=== PATIENT | male | born 1990 | race Caucasian/White ===

== ENCOUNTER 2018-01-29 20:26 | Inpatient (IN) | payer SELFPAY ==
[~2018-01-29 20:26] MED LIST: EPINEPHrine 1 MG/10 ML Abboject SYRINGE ONE; EPINEPHrine 1 MG/ML AMP ONE; Naloxone HCl 0.4 mg/ml Vial ONE; Sodium Bicarb 50 MEQ/50 ML Abboject 8.4% SYRINGE ONE
[2018-01-29 20:57] LABS: #Eosinphils 0.2 thou/uL (0.0-0.7); #Lymphocytes 3.5 thou/uL (1.20-3.40); #Neutrophils 12.5 thou/uL (1.40-6.50); %Basophils 0.2 % (0.0-1.0); %Lymphocytes 20.4 % (21.0-51.0); %Monocytes 5.6 % (0.0-10.0); %Neutrophils 72.8 % (42.0-75.0); Hemoglobin 12.8 g/dL (14.0-18.0); Mean Corpuscular Hemoglobin 30.1 pg (27.0-31.0); Mean Corpuscular Volume 91.1 fl (80.0-94.0); Platelet Count 134 thou/uL (130-400); Red Blood Cell (RBC) Count 4.25 mill/uL (4.70-6.10); White Blood Cell (WBC) Count 17.2 thou/uL (4.8-10.8)
--- NOTE | 2018-01-29 21:03 | RAD ---
PORTABLE SUPINE CHEST: 01/29/2018 PROVIDED CLINICAL HISTORY: Respiratory insufficiency. COMPARISON: 12/29/2016 FINDINGS: The cardiac and mediastinal silhouette is magnified by the portable technique. An endotracheal tube is noted, the tip of which projects in the region of the thoracic inlet. An enteric catheter is note d, the tip of which is below the diaphragm. No focal consolidation evident. The supine nature of th e study limits sensitivity for the detection of pleural fluid and pneumothorax, without evidence for such. IMPRESSION: No evidence for an acute cardiopulmonary process. POS: [facility]
[2018-01-29] MEDS ORDERED: Naloxone HCl 2 mg/2 ml Syringe ONE ×2 (21:09→21:10)
[2018-01-29 21:15] LABS: Base Excess (BEa) -15.6 mEq/L (0 (+/-) 2.5); Hematocrit-ABG 37.4 % (42.0-52.0); Hemoglobin (Hb) 12.4 g/dL (14.0-18.0); O2 Tension (PaO2) 107.3 mmHg (80.0-100.0); pH, Arterial 6.88 (7.35-7.45)
[2018-01-29 21:16] LABS: Analyzer IN Cardio ER; Puncture Site RRA
[2018-01-29 21:23] LABS: Acetaminophen Less than 6.0 mcg/mL (10.0-30.0); Alcohol 11 mg/dL (Less than 10); Salicylate Less than 8.0 mg/dL (15.0-30.0)
[2018-01-29 21:27] LABS: ALT (SGPT) 1288 U/L (8-55); AST (SGOT) 1529 U/L (5-34); Albumin 2.7 g/dL (3.5-5.0); Alkaline Phosphatase 69 U/L (40-150); Anion Gap 27 mmol/L (10-20); BUN (Urea Nitrogen) 18 mg/dL (8.9-20.6); Bilirubin, Total 0.7 mg/dL (0.2-1.2); Calc. Creatinine Clearance 0 mL/min (70-130); Calcium 6.8 mg/dL (7.8-10.44); Carbon Dioxide 17 mmol/L (22-29); Chloride 106 mmol/L (98-107); Estimated GFR-MDRD 19; Globulin 1.8 g/dL (2.4-3.5); Glucose 199 mg/dL (70-105); Protein, Total 4.5 g/dL (6.0-8.3); Sodium 146 mmol/L (136-145)
[2018-01-29 21:29] LABS: Bilirubin Small (Negative); Blood, Urine Negative (Negative); Clarity CLEAR (Clear); Glucose, Urine (Dipstick) Negative (Negative); Leukocyte Negative (Negative); Nitrite Negative (Negative); Protein, Urine (Dipstick) Trace mg/dL (Neg-Trace); Urobilinogen 0.2 mg/dL (0.2-1.0); pH, Urine 5.5 (5.0-9.0)
[2018-01-29 21:31] LABS: Troponin I Less than 0.010 ng/mL (< 0.028)
[2018-01-29 21:37] LABS: Amphetamine Not Detected (NotDetected); Barbiturates Screen Not Detected (NotDetected); Benzodiazepine Screen Detected (NotDetected); Cocaine Metabolite Screen Not Detected (NotDetected); Medtox Control Line Valid? VALID (VALID); Medtox Reader # READER 4; Methadone Not Detected (NotDetected); Methamphetamine Not Detected (NotDetected); Opiate Screen Detected (NotDetected); Oxycodone Screen Detected (NotDetected); Phencyclidine (PCP) Not Detected (NotDetected); THC/Cannabinoid Screen Not Detected (NotDetected); Tricyclic Screen Not Detected (NotDetected)
[2018-01-29 21:42] LABS: CKMB 113.5 ng/mL (0-6.6)
[2018-01-29] MEDS ORDERED: Hydrocortisone Sod Succ/PF 100 mg/2 ml Vial ONE (21:47)
[2018-01-29 21:52] LABS: CK (CPK) 13780 U/L (30-200)
[2018-01-29 22:17] LABS: pH, Arterial 6.85 (7.35-7.45)
[2018-01-29 22:19] LABS: Actual Bicarbonate (HCO3a) 17.6 mEq/L (22-26); Base Excess (BEa) -17.6 mEq/L (0 (+/-) 2.5); CO2 Tension 102.1 mmHg (35.0-45.0); Hematocrit-ABG 38.6 % (42.0-52.0); Hemoglobin (Hb) 12.8 g/dL (14.0-18.0); O2 Tension (PaO2) 95.1 mmHg (80.0-100.0)
[2018-01-29 22:20] LABS: Analyzer IN Cardio ER; Puncture Site RRA
[2018-01-29 22:21] LABS: ALV-art Gradient 490.275 (0-20)
--- NOTE | 2018-01-29 22:21 | CT ---
CT CERVICAL SPINE: 01/29/2018 PROVIDED CLINICAL HISTORY: Neck abrasions. FINDINGS: There is no evidence for fracture or traumatic subluxation. No prevertebral soft tissue swelling shaila arent. The visualized lung apices appear grossly clear. The enteric catheter is coiled on itself mu ltiple times in the region of the hypopharynx. IMPRESSION: No evidence for fracture or traumatic subluxation. POS: [facility]
--- NOTE | 2018-01-29 22:24 | CT ---
CT BRAIN: 01/29/2018 PROVIDED CLINICAL HISTORY: Overdose. Altered mental status. COMPARISON: 01/18/2018 FINDINGS: The ventricular system appears normal in size and morphology. There is no evidence for intracranial hemorrhage or mass effect. The extracranial soft tissues and osseous structures demonstrate an unrem arkable CT appearance, with the exception of fluid and density and mucosal thickening involving the s phenoid sinus and right maxillary sinus. IMPRESSION: 1. No evidence for intracranial hemorrhage or mass effect. 2. Paranasal sinus mucosal disease, as above. POS: [facility]
[2018-01-29 22:46] LABS: Actual Bicarbonate (HCO3a) 12.8 mEq/L (22-26); Base Excess (BEa) -21.7 mEq/L (0 (+/-) 2.5); CO2 Tension 78.3 mmHg (35.0-45.0); O2 Tension (PaO2) 78.8 mmHg (80.0-100.0); pH, Arterial 6.83 (7.35-7.45)
[2018-01-29 22:47] LABS: Hematocrit-ABG 34.3 % (42.0-52.0)
[2018-01-29 22:48] LABS: ALV-art Gradient 536.325 (0-20); Analyzer IN Cardio ER; Calcium, Ionized 0.9 mmol/L (1.12-1.30); Puncture Site RRA
[2018-01-30] MEDS ORDERED: Lacri-Lube Opth Oint 3.5 GM TUBE EA EYE PRN (00:06)
[2018-01-30] MEDS ORDERED: Acetaminophen 650 MG Suppository PR PRN (00:10)
[2018-01-30] MEDS ORDERED: Ondansetron ODT 4 MG TAB PO PRN (00:10)
[2018-01-30] MEDS ORDERED: Ondansetron HCl/PF 4 MG/2 ML Vial IVP PRN (00:10)
[2018-01-30] MEDS ORDERED: DC Sedation Protocol FS ONE (00:12)
[2018-01-30] MEDS ORDERED: Ventilator Sedation Protocol 1 EACH FS SCH (00:15)
[2018-01-30] MEDS ORDERED: cefTRIAXone\\ROCEPHIN 2 GM in Sodium Chloride 0.9% 100 ML IVPB SCH (01:00)
[2018-01-30] MEDS: Dextrose 5 % And 0.9 % NaCl 1,000 ML IV SCH ×2 (01:25→04:22)
[2018-01-30] MEDS: Norepinephrine 8 MG/0.9% NS 250 ML IVPB PRN ×2 (01:26→06:04)
[2018-01-30] MEDS: Hydrocortisone Sod Succ/PF 100 mg/2 ml Vial IVP SCH ×3 (01:29→12:08)
[2018-01-30] MEDS: Naloxone HCl 2 MG, Admixture Fee 1 EACH in Sodium Chloride 0.9% 500 ML IV PRN ×3 (01:33→06:04)
[2018-01-30 01:58] VITALS: BMI 40.2
[2018-01-30] MEDS: EPINEPHrine 4 MG, Admixture Fee 1 EACH in Dextrose 5% in Water 250 ML IVPB SCH ×4 (02:05→08:52)
--- NOTE | 2018-01-30 02:54 | HP ---
DATE OF ADMISSION: 01/29/2018 The patient was seen and examined on 01/29/2018 PRIMARY CARE PHYSICIAN: Yolanda Chatman. CHIEF COMPLAINT AND REASON FOR ADMISSION: Unresponsiveness. HISTORY OF PRESENT ILLNESS: The patient is a 28-year-old male with chronic pain syndrome, anxiety, d epression, posttraumatic stress disorder, who presented to the emergency room by EMS. The patient is currently intubated. No family at the bedside. History obtained from the review of ER chart. Please note that the patient has 2 different medical record numbers. His other medical record number is [id number]. The patient was last seen in the emergency room approximately 2 weeks ago for multiple complaints. Yoandy reynolds was discharged home. He declined [facility] evaluation per ER report. The patient was last seen normal approximately 24 hours ago. He was found by the neighbor slumped ov er the chair from the window. He received Narcan and was subsequently intubated. He required CPR wi th medications per ACLS protocol. He had a return of spontaneous circulation after 2 rounds of epine phrine. He required several medications including CPR while in the emergency room. His initial ABGs showed pH of 6.88 with pCO2 of 103, bicarbonate of 19, pO2 of 107.3. Please refer to the ER note fo r medication administration summary. PAST MEDICAL HISTORY: From review of record: 1. Fibromyalgia. 2. Chronic pain syndrome. 3. Trigeminal neuralgia. 4. Chronic headaches. 5. Anxiety and depression. 6. PTSD. 7. Chronic insomnia. 8. Irritable bowel syndrome. PAST SURGICAL HISTORY: 1. Multiple nasal surgeries. 2. Left ankle surgery. 3. Tonsillectomy. ALLERGIES: The patient is allergic to HYDROCODONE. Other allergies to be confirmed. CURRENT HOME MEDICATIONS: Cannot be obtained from the patient due to current cognitive status. SOCIAL HISTORY: Cannot be obtained due to current cognitive status. FAMILY HISTORY: Cannot be obtained due to current cognitive status. REVIEW OF SYSTEMS: Cannot be obtained due to current cognitive status. PHYSICAL EXAMINATION: VITAL SIGNS: On ER arrival, temperature of 92 with respirations of 26, pulse rate of 113, saturation of 91% on ventilator. His blood pressure was 94/58 on Levophed and epinephrine drip. GENERAL: A 28-year-old male, unresponsive, on mechanical ventilation. Currently on no sedation. HEENT: Head atraumatic, normocephalic. Sclerae anicteric. Dry mucous membranes. Right pupil was a round 8 mm, the left pupil was around 6 mm. The left pupil was slightly reactive to light. NECK: Supple. Neck collar noted. There was a small abrasion over the left side of the neck. There was no neck stiffness per ER record. LUNGS: Showed diminished air entry at bases with scattered rhonchi. No wheezing. HEART: S1, S2 present. Regular rate and rhythm. There was some superficial skin bruising from the CPR. No heaves or pulsation. ABDOMEN: Soft. Bowel sounds present, no rebound, guarding, no costovertebral angle tenderness. EXTREMITIES: No edema or calf tenderness. NEUROLOGIC AND PSYCHIATRIC: Could not be done due to current cognitive status. He is not responding to painful stimuli. SKIN: Warm and dry. LYMPH NODES: No palpable lymph nodes in the neck. PERIPHERAL VASCULAR: Radial pulses palpable bilaterally, low volume. LABORATORY AND X-RAY FINDINGS: 1. EKG by my review showed normal sinus rhythm with nonspecific ST-T wave changes. 2. CK was 13,780, AST was 1529, ALT 1288, creatinine 3.81. His creatinine 2 weeks ago was 0.97. 3. WBC was 17.2 with hemoglobin 12.8. 4. ABGs as discussed above. 5. Urine drug screen showed oxycodone, opiates and benzodiazepines. Plasma alcohol was 11. 6. Urinalysis was negative for WBC, bacteria. 7. Sodium was 146, potassium 4.0, chloride 106, bicarbonate 17, anion gap was 27 with creatinine of 3.81. 8. Chest x-ray by my review was negative for infiltrate. 9. CT scan of the brain was negative for acute findings. 10. Cervical spine CT was negative for acute fractures or subluxation. IMPRESSION: 1. Toxic metabolic encephalopathy/cardiac arrest/suicidal attempt with acute hypoxic and hypercapnic respiratory failure. 2. Chronic pain syndrome. 3. Anxiety, depression, posttraumatic stress disorder/fibromyalgia. 4. Rhabdomyolysis. 5. Acute kidney injury, multifactorial. 6. Anion gap metabolic acidosis. 7. Abnormal liver function tests, probably secondary to hypoperfusion. PLAN: The patient will be monitored in the Intensive Care Unit. We will continue mechanical ventila tion. Please note that the patient is currently not on sedation. We will repeat ABGs in a.m. A.m. labs including CK and CK-MB. Continue IV hydration. Consult Critical Care. Family has been notifie d by the ER physician. We will repeat chest x-ray in a.m. We will discuss the plan of care with the family when they arrive.
[2018-01-30] MEDS ORDERED: Naloxone HCl 2 mg/2 ml Syringe ONE (04:35)
[2018-01-30 04:52] LABS: CKMB 254.2 ng/mL (0-6.6); Troponin I 0.695 ng/mL (< 0.028)
[2018-01-30 05:11] LABS: CK (CPK) Greater than 40000 U/L (30-200)
[2018-01-30 05:13] LABS: Lactic Acid 15.5 mmol/L (0.5-2.2)
[2018-01-30] MEDS ORDERED: Sodium Bicarbonate 150 MEQ in Dextrose 5% in Water 1,000 ML IV SCH (05:30)
[2018-01-30 07:09] VITALS: BP 105/44
[2018-01-30] MEDS ORDERED: ADMIXTURE FEE IV PRN (07:57)
[2018-01-30] MEDS ORDERED: SODIUM CHLORIDE IV PRN (07:57)
[2018-01-30] MEDS ORDERED: NALOXONE HCL IV PRN (07:57)
[2018-01-30] MEDS ORDERED: cefTRIAXone\\ROCEPHIN 1 GM in Sodium Chloride 0.9% 100 ML IVPB SCH ×2 (08:33→09:00)
[2018-01-30 08:53] LABS: CO2 Tension 66.4 mmHg (35.0-45.0); O2 Tension (PaO2) 107.5 mmHg (80.0-100.0); pH, Arterial 6.78 (7.35-7.45)
[2018-01-30 08:54] LABS: Actual Bicarbonate (HCO3a) 9.2 mEq/L (22-26); Base Excess (BEa) -26.8 mEq/L (0 (+/-) 2.5)
[2018-01-30 08:55] LABS: Puncture Site LBA
[2018-01-30 08:56] LABS: Hemoglobin 14.4 g/dL (14.0-18.0); Mean Corpuscular HGB CONC 30.5 g/dL (32.0-36.0); Mean Corpuscular Hemoglobin 29.4 pg (27.0-31.0); Mean Corpuscular Volume 96.3 fl (80.0-94.0); Mean Platelet Volume 7.7 fL (7.4-10.4); Platelet Count 139 thou/uL (130-400); RBC Distribution Width 12.9 % (11.5-14.5); Red Blood Cell (RBC) Count 4.91 mill/uL (4.70-6.10); White Blood Cell (WBC) Count 31.4 thou/uL (4.8-10.8)
[2018-01-30] MEDS ORDERED: Famotidine/PF 20 mg/2ml Vial SLOW IVP SCH (09:00)
[2018-01-30] MEDS ORDERED: Sodium Bicarb 50 MEQ/50 ML Abboject 8.4% SYRINGE IVP SCH (09:15)
[2018-01-30 09:43] LABS: Band 34 % (5-11); Burr Cells SLIGHT = 2-5 cells (100X) (0-1/hpf); Eosinophils 2 % (0-10); Lymphocytes 13 % (21-51); MDiff Complete? YES; Monocytes 10 % (0-10); Neutrophil 41 % (42-75); PLT Morphology Comment Appears Adequate; Vacuoles SLIGHT
[2018-01-30 09:53] LABS: Albumin 1.3 g/dL (3.5-5.0)
[2018-01-30 09:54] LABS: Chloride 104 mmol/L (98-107); Potassium 4.3 mmol/L (3.5-5.1); Sodium 141 mmol/L (136-145)
[2018-01-30 09:56] LABS: Globulin 0.9 g/dL (2.4-3.5)
[2018-01-30 09:57] LABS: Anion Gap 24 mmol/L (10-20); Bilirubin, Total 0.8 mg/dL (0.2-1.2); Carbon Dioxide 17 mmol/L (22-29)
[2018-01-30 09:58] LABS: Alkaline Phosphatase 99 U/L (40-150)
[2018-01-30 09:59] LABS: Calc. Creatinine Clearance 44 mL/min (70-130); Estimated GFR-MDRD 15
[2018-01-30 10:00] LABS: BUN (Urea Nitrogen) 19 mg/dL (8.9-20.6)
[2018-01-30] MEDS ORDERED: Dextrose 50% Abboject 50 ML SYRINGE ONE (10:00)
[2018-01-30] MEDS ORDERED: DOPamine/D5W 400 mg/250 ml PREMIX ONE (10:00)
[2018-01-30] MEDS ORDERED: Atropine Sulfate 1 mg/10 ml Syringe ONE (10:00)
[2018-01-30] MEDS ORDERED: EPINEPHrine 1 MG/10 ML Abboject SYRINGE ONE (10:00)
[2018-01-30] MEDS ORDERED: Sodium Bicarb 50 MEQ/50 ML Abboject 8.4% SYRINGE ONE (10:00)
[2018-01-30 10:01] LABS: ALT (SGPT) 1975 U/L (8-55)
[2018-01-30 10:07] LABS: AST (SGOT) Greater than 3500 U/L (5-34); Glucose 626 mg/dL (70-105); Protein, Total 2.2 g/dL (6.0-8.3)
--- NOTE | 2018-01-30 10:36 | DS ---
DATE OF SERVICE: 01/30/2018 This is a CPR note, prolonged over 35 minutes. Mr. Jeffrey who was already on 3 pressors including Levophed, epinephrine and vasopressin. He had a blood gas this morning showed he remained severely acidotic with a pH of 6.78. PCO2 66, pO2 is 107. This is on a rate of 30 and 100% FiO2. Shortly after that at about 9:18 he went into cardiac arrest . Prolonged CPR was initiated from 9:18 to about 9:50. During the course of over 35 minutes he received ongoing continuous CPR with multiple amps of bicarbo marv, at least 5 multiple amps of epinephrine, at least 5 or greater in spite of him being on epineph rine drip, received 20 mg of vasopressin, an amp of calcium, several amps of D50 and insulin. An amp of glucagon and aggressive CPR. For a brief period of time we were able to get a rhythm, but no clear blood pressure. Even started double strength dopamine at one time. His was contacted. She arrived at the bedside and was told that his prognosis was grave. Brief ly after his CPR was stopped, 5 minutes have been back again, systolic with ongoing CPR. Nephrology was consulted. Consider emergency dialysis for his severe metabolic acidosis. Unfortunately, with h is hypertension and ongoing CPR this was not possible. He eventually went into a pulseless electrical activity with some kind of a rhythm, but no blood pres sure. Once again CPR was initiated. It is felt after 35 minutes that his outlook was grave. His had arrived, we discussed with her the prolonged CPR, at this time, probably was not going to change the course of his eventual demise. She agreed that we would not do any further CPR. After the third CPR, no further chest compressions were made. His ventilator was discontinued. He had no spontaneous respiration. All his pressors, 4 of them were discontinued. Slowly his PEA rhythm proceeded to become asystolic. He was pronounced at 10:05 a.m. on 01/30/2018. His is at the bedside. She does not want any autopsy. The hospital spin tank tender was at the bedside to comfort the patient's . IMPRESSION: 1. Status post overdose on a large quantity of hydrocodone. 2. Severe metabolic acidosis. 3. Renal failure, combination of hypertension and probably rhabdomyolysis. 4. Persistent shock in spite of being on multiple pressors and severe metabolic acidosis. 5. Renal failure. 6. Metabolic encephalopathy. The body will be released to the home as per the . Once again at the time of demise is 10:05 a.m. on 01/30/2018. CAUSE OF DEMISE: Multiorgan failure, severe metabolic acidosis secondary to overdose on hydrocodone.
[2018-01-30 12:02] VITALS: TEMP 91.9
--- NOTE | 2018-01-30 15:04 | CON ---
DATE OF CONSULTATION: 01/30/2018 HISTORY OF PRESENT ILLNESS: Corey Jeffrey is a 28-year-old unfortunate gentleman, history well outlined by the ER physician, history was given to the ER physician by paramedics. A week ago, the patient was seen in the ER with symptoms of post-traumatic stress syndrome, agitation, and confusion. His primary doctor is has apparently prescribed some hydrocodone for chronic pain at the time of his week ago ER visit. His past medical history was notable for fibromyalgia, chronic neck and back pain, asthma, trigeminal neuralgia, chronic headache, vertigo, and insomnia. Now it appears he took unknown quantity of hydrocodone, was last seen talking 24 hours ago by family members. Apparently, someone noticed he was not breathing, slumped on the chair, 911 was called in. He had a suicide note kept on his chest, which stated a DNR. CPR was initiated on arrival by the paramedics. He was given several amps of epinephrine, 3 amps of bicarbonate, IV fluids, Narcan was initiated. I was notified about the patient's arrival in the ER. There was 2 primary care physician's name on his hydrocodone bottle. MEDICATIONS: His medicines from home includes chlorzoxazone 500, laxative, oxycodone 10 mg, Naprosyn, Cardizem 90 twice a day, sumatriptan 100 every 2 hours p.r.n., clonazepam 2 mg twice a day, tizanidine 4 mg a day, Xyzal 5 daily , baclofen as needed, Cymbalta 60 twice a day, sildenafil 20 twice a day, Adcirca 20 twice a day, ranitidine 150, Afrin. PAST SURGICAL HISTORY: Outlined in his previous records included some kind of nasal surgery and tonsillectomy. PAST MEDICAL HISTORY: Pertinent for major anxiety, bipolar disorder, fibromyalgia, and chronic headaches. ALLERGIES: Unable to obtain, but appears PENICILLIN AND DEXAMETHASONE. SOCIAL/FAMILY HISTORY: Otherwise unobtainable. REVIEW OF SYSTEMS: Unobtainable. PHYSICAL EXAMINATION: VITAL SIGNS: Pulse is 70, blood pressure 110/44, sats are 92%, respiratory rate , vent set at 30. HEENT: Pupils are 6 mm dilated. CHEST: Decreased breath sounds, no wheezing. CARDIAC: Normal S1 and S2, no gallops. ABDOMEN: Soft. EXTREMITIES: No edema. LABORATORY DATA: Chest x-ray showed no acute infiltrates. He had a CT done of his head emergency basis, which did not show any acute changes. Lactic acid is 15. Creatine kinase is 40,000. He had benzos, oxycodone, opiates in his urine. Cervical CT was negative. He has some kind of a bruise on his left side of his neck. Blood gas shows severe metabolic acidosis. A pO2 was 78, pCO2 was 78, pH 6.8. BUN and creatinine are 18 and 3.8. CK-MB 113. To note in the ER, he underwent CPR for a period of time as per the ER physician. He presently on vasopressin, epinephrine, dopamine, as well as a Narcan drip. He has got bicarb in his IV. IMPRESSION: 1. Status post cardiopulmonary arrest secondary to narcotic overdose on apparently hydrocodone, unknown quantity. 2. Rhabdomyolysis. 3. Renal failure. 4. Anoxic injury\\severe metabolic acidosis. PLAN: Await family's arrival. Discussed with his at length. Prognosis remains guarded. Continue pressors to try to maintain blood pressure of at least 100 systolic. Try and correct metabolic acidosis. An EEG is being ordered. Unfortunately, his CT of his head did not show any evidence of intracranial hemorrhage or masses, but was somewhat hazy in my mind. Serial exam. Neurology input. This is a 45 minute critical care time. JAYDEN
[2018-01-30] MEDS ORDERED: Enoxaparin Sodium 40 MG/0.4 ML SYRINGE SC SCH (21:00)
--- NOTE | 2018-02-02 22:16 | EKG ---
Test Reason : Blood Pressure : / mmHG Vent. Rate : 077 BPM Atrial Rate : 077 BPM P-R Int : 192 ms QRS Dur : 112 ms QT Int : 406 ms P-R-T Axes : 046 046 -04 degrees QTc Int : 459 ms Normal sinus rhythm Possible Inferior infarct , age undetermined Abnormal ECG Confirmed by WES LOYOLA D.O. ([id number]), editorial clerk PADMINI LOJA ([id number]) on 02/02/2018 10:14:37 PM Referred By: Confirmed By:WES LOYOLA D.O.
--- NOTE | 2018-02-02 22:16 | EKG ---
Test Reason : Blood Pressure : / mmHG Vent. Rate : 098 BPM Atrial Rate : 098 BPM P-R Int : 250 ms QRS Dur : 112 ms QT Int : 350 ms P-R-T Axes : 034 047 -10 degrees QTc Int : 446 ms Sinus rhythm with 1st degree A-V block Incomplete right bundle branch block Possible Inferior infarct , age undetermined Abnormal ECG Confirmed by WES LOYOLA D.O. ([id number]), newspaper or periodical editor PADMINI LOJA ([id number]) on 02/02/2018 10:14:36 PM Referred By: Confirmed By:WES LOYOLA D.O.
== END 2018-01-30 10:05 | disposition expired | DRG 917 ==
LOC: EDBD 20:26 → ERS 20:26 → CCU 21:45
PROVIDERS: ADMIT Internal Medicine; ATTEND Internal Medicine
PROC: 5A1935Z Respiratory Ventilation, Less than 24 Consecutive Hours (ICD-10-PCS; principal; 2018-01-29)
PROC: 3E033XZ Introduction of Vasopressor into Peripheral Vein, Percutaneous Approach (ICD-10-PCS; 2018-01-29)
PROC: 5A12012 Performance of Cardiac Output, Single, Manual (ICD-10-PCS; 2018-01-30)
DX: T40.2X2A Poisoning by other opioids, intentional self-harm, initial encounter (principal); J96.01 Acute respiratory failure with hypoxia; G92 Toxic encephalopathy; J96.02 Acute respiratory failure with hypercapnia; M62.82 Rhabdomyolysis; N17.9 Acute kidney failure, unspecified; R57.9 Shock, unspecified; G93.1 Anoxic brain damage, not elsewhere classified; E87.2 Acidosis; G89.4 Chronic pain syndrome; F41.9 Anxiety disorder, unspecified; F43.10 Post-traumatic stress disorder, unspecified; Z88.5 Allergy status to narcotic agent; Y90.0 Blood alcohol level of less than 20 mg/100 ml; I46.8 Cardiac arrest due to other underlying condition; I10 Essential (primary) hypertension; G47.00 Insomnia, unspecified; F31.9 Bipolar disorder, unspecified; G50.0 Trigeminal neuralgia
CPT/HCPCS: 36415; 70450; 71045; 72125; 80053; 80306; 80307; 81003; 82533; 82550; 82553; 82805; 83605; 83690; 83735; 84100; 84484; 85025; 86850; 86900; 86901; 93005; 94002; 94003; A4216; J0171; J0461; J0696; J1265; J1610; J1720; J2310; J7050; J7070